=== PATIENT | female | born 2000 | race Caucasian/White ===

== ENCOUNTER 2024-03-22 20:59 | Emergency (ER) | payer SELFPAY ==
[~2024-03-22] VITALS: Ht 162.6 cm; Wt 61.2 kg
[2024-03-22 21:43] VITALS: TEMP 98.8
[2024-03-22 22:00] VITALS: BP 134/87; O2SAT 98
== END 2024-03-22 22:08 | disposition home or self-care (01) ==
LOC: ER 21:04
DX: T44.991A Poisoning by other drug primarily affecting the autonomic nervous system, accidental (unintentional), initial encounter (principal); F19.10 Other psychoactive substance abuse, uncomplicated; Y92.89 Other specified places as the place of occurrence of the external cause